=== PATIENT | female | born 1945 | race Caucasian/White ===

== ENCOUNTER → 2018-02-15 12:39 | Outpatient (CLI) | payer MEDICARE, SELFPAY ==
--- NOTE | 2018-02-15 12:44 | CA_ITS ---
PROCEDURE: 2-D M-mode and color Doppler study INDICATIONS FOR THE TEST: Chest pain COPD Heart MurmurX Tobacco Smoking Palpitations Fatigue Syncope Edema HypertensionXDiabetes Mellitus Rheumatic Fever SOB DOEXObesityXHyperlipidemiaX Family History HD Additional History PATIENT INFORMATION HEIGHT: 56 WEIGHT:170 GENDER: Female B/P:110/70 2-D/M-MODE INTERPRETATION: 2-D MEASUREMENTS OBSERVED VALUES IN CMS Right Ventricular Dimension (RVDd) 2.1 Interventricular Septum (Thickness)(IVsd) 1.1 Left Ventricular Internal Dimensions(LVIDd) 4.7 Left Ventricular Posterior Wall (Thickness)(LVPWd) .9 Aortic Root 2.9 Aortic Cusp Separation 1.9 Left Atrial Dimensions (LAD) 2.3 2D 1. Left atrium is qualitatively mildly enlarged, left ventricle is normal size, mild concentric left ventricular hypertrophy, visually estimated ejection fraction 55% with no obvious regional wall motion abnormality. 2. The right atrium and right ventricle are normal size and contractility. 3. The aortic, mitral and tricuspid valve are grossly normal. 4. The pulmonic valve is poorly visualized. 5. No significant pericardial effusion noted. DOPPLER INTERROGATION: Doppler interrogation of the aortic, mitral and tricuspid valvular presence of mild mitral and tricuspid regurgitation, tricuspid and jet velocity insufficient for calculation of the right ventricular systolic pressure, grade 1 diastolic dysfunction seen without tissue Doppler evidence of raised left atrial pressure. CONCLUSION: 1. Qualitatively mildly enlarged left atrium, normal left ventricular size, mild concentric left ventricular hypertrophy, visually estimated ejection fraction 55% with no obvious regional wall motion abnormality, grade 1 diastolic dysfunction seen without tissue Doppler evidence of raised left atrial pressure. 2. Mild mitral and tricuspid regurgitation 3. No significant pericardial effusion noted.
== END ==
PROVIDERS: Family Provider Family Medicine; PCP Family Medicine; Visit Provider Family Medicine
DX: R01.1 Cardiac murmur, unspecified (principal)
CPT/HCPCS: 93306

== ENCOUNTER → 2018-12-10 08:59 | Outpatient (CLI) | payer MEDICARE, SELFPAY ==
--- NOTE | 2018-12-10 09:14 | MM_ITS ---
MM Dig screening mamm BI w/CAD ORDERING PHYSICIAN : Jeanine Morales MD PATIENT AGE: 73 years GENDER: Female COMPARISON: October 2016, July 2015, June [id number] INDICATION: ITS routine screening mammogram. No hormones. No new complaints. Noncontributory family history. TECHNIQUE: Standard CC and MLO images were obtained. R2 CAD reviewed. . Additional nipple profile cc views bilaterally FINDINGS: Low-density breast. Generalized fatty replacement withMinimal residual fibroglandular elements in the retroareolar region . Linear secretory calcifications bilaterally are similar to previous studies and can be followed safely. Also vascular calcification noted bilaterally. Most notable diffuse calcification involving small artery vessel upper-outer quadrant both breast But no significant new findings in either breast. Follow-up follow-up in one year recommended. Small marker at the inferior left breast IMPRESSION: ........................................... Stable bilateral mammogram. No new areas of of concern benign secretory calcifications again noted bilaterally & with incremental progression over many years.- However these are Benign appearing feature can be followed . Bilateral follow-up one year recommended/adequate. BI-RADS Category: 2 Benign Finding(s) RECOMMENDED FOLLOW-UP: 1YR 1 YEAR FOLLOW-UP (A letter has been sent to the patient regarding results of the study.)
== END ==
PROVIDERS: PCP Family Medicine; Visit Provider Family Medicine
DX: Z12.31 Encounter for screening mammogram for malignant neoplasm of breast (principal)
CPT/HCPCS: 77067

== ENCOUNTER → 2019-09-01 11:06 | Outpatient (CLI) | payer MEDICARE, SELFPAY ==
--- NOTE | 2019-09-01 11:12 | XR_ITS ---
PROCEDURE: XR SHOULDER RT MIN 2V CLINICAL INDICATION: pain/weakness COMPARISON: No exams were available for comparison FINDINGS: Osteoarthritic changes are present at the acromioclavicular joint and to lesser degree at the glenohumeral joint with minimal cortical regularity of the greater tuberosity of the humeral head which may be seen with rotator cuff disease. No fracture or dislocation. No lytic or blastic change. IMPRESSION: Degenerative changes, no acute finding Dictated by: Fawad Del Valle MD 09/01/2019 11:52 Electronically signed by Fawad Del Valle MD in [place] 09/01/2019 11:52
== END ==
PROVIDERS: PCP Family Medicine; Visit Provider Specialist
DX: M79.601 Pain in right arm (principal); R29.898 Other symptoms and signs involving the musculoskeletal system
CPT/HCPCS: 73030

== ENCOUNTER → 2019-09-19 14:17 | Outpatient (CLI) | payer MEDICARE, SELFPAY ==
--- NOTE | 2019-09-19 14:17 | MR_ITS ---
PROCEDURE: MR SHOULDER RT WO CON CLINICAL INDICATION: weakness, pain COMPARISON: No exams were available for comparison TECHNIQUE: Routine multiplanar multisequence exam was performed. There is partial-thickness tear of the supraspinatus and infraspinatus tendons of the rotator cuff. There are tears of the anterior and posterior glenoid labrum. There are subchondral cysts likely degenerative in the humeral head largest approximately 8 millimeters. Small amount of fluid is seen in the subacromial/subdeltoid bursa. There is acromioclavicular joint arthropathy with fluid within the joint space. There is bony in fibrous overgrowth projecting inferiorly contacting the supraspinatus muscle. The bicipital tendon is in place. There is a short segment of high signal intensity within the bicipital tendon compatible with partial longitudinal tear as the bicipital tendon overlies proximal humeral head. There is some signal abnormality in the subscapularis tendon as it overlies the humeral head. Tendinosis versus partial substance tearing should be considered. FINDINGS: Partial-thickness tears of supraspinatus and infraspinatus tendons of rotator cuff. Partial longitudinal tear bicipital tendon. Tears of the anterior and posterior glenoid labrum. Acromioclavicular joint arthropathy. IMPRESSION: Dictated by: Tucker Saha 09/19/2019 16:27 Electronically signed by Tucker Saha in [place] 09/19/2019 16:27
== END ==
PROVIDERS: PCP Family Medicine; Visit Provider Specialist
DX: M79.601 Pain in right arm (principal); R29.898 Other symptoms and signs involving the musculoskeletal system
CPT/HCPCS: 73221

== ENCOUNTER → 2021-04-20 11:09 | Outpatient (CLI) | payer MEDICARE, SELFPAY | PROVIDERS: Visit Provider Internal Medicine Gastroenterology | DX: Z01.812 Encounter for preprocedural laboratory examination (principal); Z20.822 Contact with and (suspected) exposure to COVID-19; U07.1 COVID-19; Z12.11 Encounter for screening for malignant neoplasm of colon | CPT/HCPCS: C9803; U0003; U0005 ==

== ENCOUNTER → 2022-06-27 14:27 | Outpatient (CLI) | payer MEDICARE, SELFPAY ==
--- NOTE | 2022-06-27 14:44 | XR_ITS ---
FINAL REPORT CLINICAL HISTORY: LT LEG PAIN FINDINGS: Left knee Three views were obtained. There is no acute fracture or dislocation. There is moderate tri compartment degenerative change. The bones are osteopenic. No soft tissue abnormality is identified. IMPRESSION: Moderate degenerative changes. Reviewed, Interpreted and Dictated by Hope Wen MD Transcribed by Myesha Witt Authenticated and . [facility]
== END ==
PROVIDERS: PCP Family Medicine; Visit Provider Family Medicine
DX: M79.605 Pain in left leg (principal)
CPT/HCPCS: 73562

== ENCOUNTER → 2022-11-27 14:18 | Outpatient (CLI) | payer MEDICARE, SELFPAY ==
--- NOTE | 2022-11-27 14:20 | CA_ITS ---
FINAL REPORT TECHNIQUE: Ultrasound images of the deep venous system were obtained from the left groin to the calf veins. CLINICAL HISTORY: lle pain and edema FINDINGS: The deep venous system is normally compressible. Normal flow is identified. Note is made of a 4.2 cm popliteal cyst. IMPRESSION: No evidence of left lower extremity DVT. Reviewed, Interpreted and Dictated by Aniceto Espinosa MD Transcribed by Katty Kendrick Authenticated and [facility]
== END ==
PROVIDERS: PCP Family Medicine; Visit Provider Internal Medicine
DX: M79.662 Pain in left lower leg (principal)
CPT/HCPCS: 93971

== ENCOUNTER → 2023-01-24 12:54 | Outpatient (CLI) | payer MEDICARE, SELFPAY ==
--- NOTE | 2023-01-24 12:57 | MR_ITS ---
FINAL REPORT CLINICAL HISTORY: RIGHT SIDE SCIATICA COMPARISON: None FINDINGS: Multiplanar MR imaging of the lumbar spine was performed without contrast. On the sagittal T2-weighted images, disc degeneration is seen throughout. Mild retrolisthesis of L1 on L2 and L2 on L3. There is 6 mm of anterolisthesis of L5 on S1. There is no evidence of fracture. No bony mass is identified. The conus has an unremarkable appearance. L1-2: Annular disc bulge, facet arthropathy, and osteophytes. Moderate bilateral neuroforaminal narrowing. L2-3: Annular disc bulge, facet arthropathy, and osteophytes. Right paracentral disc protrusion. Right L3 nerve root impingement. Severe bilateral neuroforaminal narrowing. L3-4: Annular disc bulge, facet arthropathy, and osteophytes. Moderate right and severe left neuroforaminal narrowing. Left lateral recess stenosis. Moderate central canal stenosis with AP diameter of the thecal sac of 6 mm. L4-5: Annular disc bulge, facet arthropathy, and osteophytes. Severe right and moderate left neuroforaminal narrowing. Right lateral recess stenosis. Right L5 nerve root impingement. Mild central canal stenosis with AP diameter of the thecal sac of 7 mm. L5-S1: Annular disc bulge and facet arthropathy. Bilateral lateral recess stenosis. Severe right and moderate left neuroforaminal narrowing. IMPRESSION: Multilevel degenerative disc disease and spondylosis as described with disc protrusion at L2-3. Reviewed, Interpreted and Dictated by Maximino Gregory III, MD Transcribed by Charissa Ordoñez Authenticated and [facility]
== END ==
PROVIDERS: PCP Family Medicine; Visit Provider Family Medicine
DX: M54.50 Low back pain, unspecified (principal); M54.31 Sciatica, right side
CPT/HCPCS: 72148; 76376

== ENCOUNTER → 2023-04-13 10:32 | Outpatient (POV) | payer MEDICARE, SELFPAY ==
[2023-04-13 11:40] VITALS: BP 193/76; PULSE 75; RESP 18; O2SAT 98; BMI 29.4
--- NOTE | 2023-04-13 12:51 | EXP.PAIN.PRO ---
Procedure Date: 04/13/23 Anesthesiologist:: Andrez Mirza CRNA Complications:: None
--- NOTE | 2023-04-13 12:52 | EXP.PAIN.OV ---
HPI Data of Consult Consult date: 04/13/23 Requesting Physician: Andrez Mirza CRNA Primary Care Provider: Jeanine Morales MD Consult Narrative Reason for consult: Lumbar back pain. Right leg radiculopathy. History of present illness: Ms. Lehman is a 77 year old female who comes our clinic today for initial evaluation regarding chronic low back pain as well as right hip and leg radicular symptoms to the knee. The majority of her pain is in the posterior thigh. She describes the pain as constant, dull, aching. She rates the pain 10/10. Patient had a recent visit with Dr. Okeefe. He recommended injective therapy. Her lumbar MRI shows degenerative disc lumbar spine multilevel. Multilevel disc disease with spondylosis. Multilevel disc bulge. L2-3, L3-4, L4-5 and L5-S1. Right L5 nerve root impingement. Central canal stenosis at 4 5 and 5 S1. CC: Andrez Mirza CRNA [facility] Disclaimer: The information contained in this section may have been updated after the patient was seen, as this information can be updated by other users. Medical History (Updated 04/13/23 @ 12:54 by Andrez Mirza CRNA) Arthritis Cataract HLD (hyperlipidemia) HTN (hypertension) Surgical History (Updated 04/13/23 @ 11:43 by Mariam Carrera RN) H/O arthroscopic knee surgery H/O hemorrhoidectomy H/O shoulder surgery Hx of cholecystectomy Family History (Updated 04/13/23 @ 11:42 by Mariam Carrera RN) Other Cancer Heart attack Hypertension Social History (Updated 04/13/23 @ 11:44 by Mariam Carrera RN) Smoking Status: Never smoker alcohol intake: never substance use type: denies use current occupational status: retired Travel in the last 8 weeks: None household members: none housing: house caffeine: No Meds Home Medications and Allergies Home Medications Medication Instructions Recorded Confirmed Type aspirin 81 mg tablet,delayed 81 mg PO DAILY Supplement 09/01/19 04/13/23 History release ergocalciferol (vitamin D2) 1,250 1,250 mcg PO DAILY Supplement 09/01/19 04/13/23 History mcg (50,000 unit) capsule ezetimibe 10 mg tablet 10 mg PO DAILY Cholesterol 09/01/19 04/13/23 History gabapentin 100 mg capsule 100 mg PO DAILY Pain 09/01/19 04/13/23 History lansoprazole 30 mg capsule,delayed 30 mg PO DAILY GERD 09/01/19 04/13/23 History release pentoxifylline 400 mg 400 mg PO DAILY bp 09/01/19 04/13/23 History tablet,extended release ramipril 5 mg capsule 5 mg PO BID bp 09/01/19 04/13/23 History simvastatin 40 mg tablet 40 mg PO DAILY Cholesterol 09/01/19 04/13/23 History diclofenac potassium 50 mg tablet 50 mg PO BID Pain 04/19/21 04/13/23 History New Prescriptions to Start Prescriptions: Allergies Allergy/AdvReac Type Severity Reaction Status Date / Time acetaminophen [From PERCOCET] Allergy Unknown VOMIT-PROFU Verified 09/29/19 09:45 SE mirabegron [From MYRBETRIQ] Allergy Unknown NEUROLOGICAL Verified 09/29/19 09:45 EFFECTS oxycodone [From PERCOCET] Allergy Unknown VOMIT-PROFU Verified 09/29/19 09:45 SE Objective Vital signs: Pulse Resp BP Pulse Ox O2 Del Method 75 18 193/76 H 98 Room Air 04/13/23 11:40 04/13/23 11:40 04/13/23 11:40 04/13/23 11:40 04/13/23 11:40 Opioid Risk Tool Opioid Risk Tool-Female Family hx alcohol abuse: No Family hx illegal drugs: No Family hx rx drug abuse: No Personal hx alcohol abuse: No Personal hx illegal drugs: No Personal hx rx drug abuse: No Age: 45+ Hx of sexual abuse: No Mental health issues-ADD,OCD,Bipolar, etc: No Hx of depression: No Female Risk Score: 0 Assessment and Plan *Assessment and plan (1) Degenerative disc disease, lumbar: Status: Acute Category: Medical Code(s): M51.36 - Other intervertebral disc degeneration, lumbar region (2) Lumbar radiculopathy: Status: Acute Category: Medical Code(s): M54.16 - Radiculopathy, lumbar region (3) Bulging lumbar dis
== END ==
PROVIDERS: PCP Family Medicine; Visit Provider Nurse Anesthetist, Certified Registered
DX: M51.16 Intervertebral disc disorders with radiculopathy, lumbar region; M47.26 Other spondylosis with radiculopathy, lumbar region
CPT/HCPCS: 99202; G0463

== ENCOUNTER 2023-04-24 10:54 | Day surgery (SDC) | payer MEDICARE, SELFPAY ==
[2023-04-24 11:10] VITALS: BP 152/71; PULSE 81; RESP 18; TEMP 36.6; O2SAT 99; BMI 23.1
[2023-04-24 11:35] VITALS: BP 149/68; PULSE 75; RESP 16; O2SAT 99
--- NOTE | 2023-04-24 11:35 | EXP.PAIN.PRO ---
Procedure Date: 04/24/23 Time: 11:30 Anesthesiologist:: Andrez Mirza CRNA Complications:: None Pre-procedure Diagnosis:: Degenerative disc lumbar spine multilevels. Lumbar radiculopathy. Multilevel disc bulge lumbar spine. Right L5 nerve root impingement. Central canal stenosis 4 5 and 5 S1. Post-procedure Diagnosis:: Same. Indications for Procedure:: Patient is a very pleasant 77-year-old female that comes our clinic today for lumbar transforaminal epidural steroid injection on the right L4-5, L5-S1. Patient describes low back pain is constant, dull, aching. Patient also complains of bilateral hip and leg radicular symptoms. Right greater than left. Procedure Details:: Details of the procedure were explained to the patient. The patient was taken the procedure room placed in the prone position. The area of the lumbar spine was cleansed using chlorhexidine as a cleansing solution. At this time using fluoroscopy guidance markers were placed on the right lateral border of the L4 and L5 vertebral body. The skin and subcutaneous tissue was anesthetized using 1% lidocaine and 25-gauge needle. At this time using a 22-gauge 3-1/2 inch spinal needle the right upper one third of the L4-5 foramen was accessed. The same was done at the right L5-S1 foramen. Needle positions were confirmed and a lateral view using fluoroscopy and contrast dye. At this time 1 cc of 1% lidocaine +20 mg of Depo-Medrol was injected at each level after negative aspiration. [place] were removed. Band-Aid applied. Patient tolerated the procedure without difficulty. There are no complications. Plan and Disposition:: Patient was discharged without incident.
[2023-04-24 11:38] VITALS: BP 171/84; PULSE 85; RESP 18; O2SAT 95
[2023-04-24 11:39] VITALS: BP 171/84; PULSE 85; RESP 18; O2SAT 95
== END 2023-04-24 11:35 | disposition home or self-care (01) ==
PROVIDERS: PCP Family Medicine; Visit Provider Nurse Anesthetist, Certified Registered
DX: M51.16 Intervertebral disc disorders with radiculopathy, lumbar region (principal); M48.061 Spinal stenosis, lumbar region without neurogenic claudication
CPT/HCPCS: 64483; 64484; J1030

== ENCOUNTER → 2023-05-11 14:04 | Outpatient (POV) | payer MEDICARE, SELFPAY ==
[2023-05-11 14:13] VITALS: BP 174/69; PULSE 76; RESP 20; BMI 29.4
--- NOTE | 2023-05-11 14:31 | EXP.PAIN.SOA ---
[facility] Pain Management SOAP Note Subjective:: Patient is a very pleasant 77-year-old female that returns our clinic today after receiving a lumbar transforaminal epidural on the right at L4-5 and L5-S1. Patient reports 60 to 70% improvement in terms of her overall right hip and leg radicular symptoms. Patient reports today continuing with a low lumbar back pain bilaterally as well as some left leg radicular symptoms. I discussed in detail with the patient regarding intralaminar lumbar epidural steroid injection at the L4-5 level that would help improve symptoms bilaterally. Patient has seen Dr. Okeefe and patient not interested in having surgical intervention at this time. Patient's lumbar MRI shows multilevel degenerative disc, multilevel spondylosis, multilevel disc bulge, central canal stenosis L4-5 and L5-S1. Patient's Cal #[id number] has been reviewed and appropriate. Patient continues taking some Tylenol arthritis for her pain in the low lumbar area. Patient has tried and failed physical therapy due to increased pain. Patient reports today she has not been able to do home exercise and/or light house duty secondary to the pain. Objective:: Patient is awake alert [place] x3. In no acute distress. Flexion-extension lumbar spine somewhat guarded secondary to pain. Deep tendon reflexes upper and lower extremities normal. Motor strength upper and lower extremities normal. There is no gross sensory deficit. Gait is normal. Assessment:: Degenerative disc lumbar spine multilevels. Lumbar radiculopathy. Lumbar spinal stenosis. Lumbar multilevel disc bulge. Lumbar spondylosis. Plan:: I discussed in detail with the patient regarding intralaminar L4-5 lumbar epidural steroid injection. I answered her questions. She wishes to proceed. We will get this scheduled for her today. [facility] Disclaimer: The information contained in this section may have been updated after the patient was seen, as this information can be updated by other users. Medical History Arthritis Cataract HLD (hyperlipidemia) HTN (hypertension) Surgical History H/O arthroscopic knee surgery H/O hemorrhoidectomy H/O shoulder surgery Hx of cholecystectomy Family History Other Cancer Heart attack Hypertension Social History Smoking Status: Never smoker alcohol intake: never substance use type: denies use current occupational status: other Travel in the last 8 weeks: None household members: none housing: house caffeine: No
== END ==
PROVIDERS: PCP Family Medicine; Visit Provider Nurse Anesthetist, Certified Registered
DX: M51.16 Intervertebral disc disorders with radiculopathy, lumbar region (principal); M48.061 Spinal stenosis, lumbar region without neurogenic claudication; M47.26 Other spondylosis with radiculopathy, lumbar region
CPT/HCPCS: 99212; G0463

== ENCOUNTER 2023-05-22 09:54 | Day surgery (SDC) | payer MEDICARE, SELFPAY ==
[2023-05-22 09:40] VITALS: BP 161/75; PULSE 88; RESP 18; TEMP 36.4; O2SAT 99; BMI 29.4
[2023-05-22 10:42] VITALS: BP 171/76; PULSE 84; RESP 18; O2SAT 96
[2023-05-22 10:45] VITALS: BP 171/76; PULSE 84; RESP 18; O2SAT 96
--- NOTE | 2023-05-22 11:48 | EXP.PAIN.PRO ---
Procedure Date: 05/22/23 Time: 11:00 Anesthesiologist:: Andrez Mirza CRNA Complications:: None Pre-procedure Diagnosis:: Degenerative disc lumbar spine multilevels. Lumbar radiculopathy. Lumbar spinal stenosis. Post-procedure Diagnosis:: Same. Indications for Procedure:: Patient is a very pleasant 77-year-old female comes our clinic today for lumbar epidural steroid inject the L4-5 level. Patient complains of low back pain she describes as constant, dull, aching. Patient also complains of bilateral hip and leg radicular symptoms right greater than left. Patient rates her pain 6/10. Procedure Details:: Procedure: Lumbar epidural steroid injection under fluoroscopy Informed consent was obtained and the risks and benefits of the procedure were explained to the patient. The patient was taken to the procedure room and noninvasive monitors placed, including noninvasive blood pressure cuff and pulse oximeter. The back was viewed using C-arm Fluoroscopy and prepped using Chloraprep as a cleansing solution and the L4-L5 interspace was palpated. Skin and subcutaneous tissues were anesthetized using lidocaine 1.5% and a 25-gauge needle. After this, an 18-gauge Touhy epidural needle was placed into the L4-L5 interspace and advanced using fluoroscopic guidance and loss of resistance to air until the epidural space was encountered. After confirmation of needle placement in the epidural space, with dye, a solution containing normal saline, 3 mL and Depo-Medrol 80 mg were incrementally injected into the lumbar epidural space. The patient tolerated the procedure well with no complications. The patient was observed in the Pain Clinic and then discharged home neurologically intact. Plan and Disposition:: Patient was discharged without incident.
== END 2023-05-22 10:23 | disposition home or self-care (01) ==
LOC: SC.PAINP 09:55
PROVIDERS: PCP Family Medicine; Visit Provider Nurse Anesthetist, Certified Registered
DX: M51.16 Intervertebral disc disorders with radiculopathy, lumbar region (principal); M48.061 Spinal stenosis, lumbar region without neurogenic claudication
CPT/HCPCS: 62323; J1040

== ENCOUNTER → 2023-06-06 09:38 | Outpatient (POV) | payer MEDICARE, SELFPAY ==
--- NOTE | 2023-06-06 09:47 | EXP.PAIN.SOA ---
[facility] Pain Management SOAP Note Subjective:: Patient is a very pleasant 77-year-old female who presents today for follow-up of lumbar epidural steroid injection L4-L5 on 05/22/2023. We are currently treating the patient for degenerative disc disease of lumbar spine with lumbar radiculopathy symptoms, right leg pain. Today she rates her pain a 5 out of 10. Patient denies any new trauma or injury. She does state that she has had at least 50% improvement following her back injection however she does state that she has been experiencing more pain in her left knee. Patient does state this is a aching sensation that is worse with increased activity. She does believe it is all related to arthritis. Patient has had intra-articular injections in the past from her primary care provider that did provide additional relief. Patient does state that she has had a total knee replacement on the right side but denies any previous surgery along the left. She does state the pain interferes with her ability perform activities of daily living such as cooking or cleaning or even simple ambulation. Patient does use Tylenol arthritis for some improvement. Patient has tried and failed physical therapy. She does continue to do at home exercising and stretching such as light housework however this is dependent on how bad her pain is on a day-to-day basis. Her Cal has been reviewed and is appropriate. Review of Systems: General: No recent weight changes, no fever, no sleep disturbances Respiratory: No cough, no shortness of air, no recurring pulmonary infections Cardiovascular/peripheral vascular: No chest pain, no palpitations, no edema, no shortness of breath Gastrointestinal: No new onset incontinence, normal bowel movements reported Genitourinary: No new onset incontinence Musculoskeletal: Left knee pain Psychiatric: [Normal mood/affect] Neurological: [Denies weakness in extremities], [denies balance issues] Objective:: Physical Exam: General: Alert and oriented x3, no acute distress, pleasant and cooperative Lungs: Respirations even and unlabored, symmetrical chest expansion Eyes: PERRL Musculoskeletal: Flexion and extension of left knee somewhat guarded secondary to pain, [antalgic gait noted] Neurological: Speech clear, no gross sensory deficit Assessment:: Degenerative disc disease of lumbar spine with lumbar radiculopathy symptoms, right leg pain, left knee pain Plan:: Patient is experiencing worsening pain in her left knee with limited range of motion. I have discussed with the patient that she may benefit from a left intra-articular knee injection. Risk and benefits were discussed with the patient however she would like to confirm with her primary care provider when the last injection was given. I have counseled her that she can call and schedule this injection over the phone between now and her next visit. I will order the patient a compounded cream. Patient will return to clinic in 1 month for reevaluation of symptoms and plan of care. Patient has been instructed to contact the clinic with any concerns before the next appointment. Dr. Noe has reviewed this note and agrees with this plan of care. This note was dictated using voice recognition software and make contain errors or omissions. [facility] Disclaimer: The information contained in this section may have been updated after the patient was seen, as this information can be updated by other users. Medical History Arthritis Cataract HLD (hyperlipidemia) HTN (hypertension) Surgical History H/O arthroscopic knee surgery H/O hemorrhoidectomy H/O shoulder surgery Hx of cholecystectomy Family History Other Cancer Heart attack Hypertension Social History Altagracia
[2023-06-06 10:05] VITALS: BP 144/69; PULSE 77; RESP 18; O2SAT 97; BMI 30.2
== END ==
PROVIDERS: PCP Family Medicine; Visit Provider Nurse Practitioner Family
DX: M51.16 Intervertebral disc disorders with radiculopathy, lumbar region (principal); M79.604 Pain in right leg; M25.562 Pain in left knee
CPT/HCPCS: 99212; G0463

== ENCOUNTER → 2023-07-05 10:42 | Outpatient (POV) | payer MEDICARE, SELFPAY ==
[2023-07-05 10:50] VITALS: BP 136/86; PULSE 73; RESP 18; O2SAT 100; BMI 29.2
--- NOTE | 2023-07-05 11:19 | EXP.PAIN.SOA ---
[facility] Pain Management SOAP Note Subjective:: Patient is a pleasant 77-year-old female who presents today for follow-up. We are currently treating the patient for degenerative disc disease of lumbar spine with lumbar radiculopathy symptoms, bilateral knee pain/osteoarthritis. Today she rates her pain a 5 out of 10. Patient denies any new trauma or injury. Patient does state that she is experiencing worsening pain with her knees. She states that she has had a right knee replacement in the past however has never had any surgery on her left. Patient does state that the right knee will throb throughout the night interfering with her sleeping. She states it is hard to get in a good position. Patient does state the pain interferes with her ability perform activities of daily living such as cooking and cleaning. At our last visit we did review over the intra-articular injection for her left knee and she states today she would like to proceed forward with this plan of care. We did also order her a compounded cream however she states that she had a lot going on over the last month and she is unsure if they did contact her. She would like to reorder this medication. Her Cal has been reviewed and is appropriate. Review of Systems: General: No recent weight changes, no fever, no sleep disturbances Respiratory: No cough, no shortness of air, no recurring pulmonary infections Cardiovascular/peripheral vascular: No chest pain, no palpitations, no edema, no shortness of breath Gastrointestinal: No new onset incontinence, normal bowel movements reported Genitourinary: No new onset incontinence Musculoskeletal: Bilateral knee pain Psychiatric: [Normal mood/affect] Neurological: [Denies weakness in extremities], [denies balance issues] Objective:: Physical Exam: General: Alert and oriented x3, no acute distress, pleasant and cooperative Lungs: Respirations even and unlabored, symmetrical chest expansion Eyes: PERRL Musculoskeletal: Flexion and extension of bilateral knees somewhat guarded secondary to pain, [antalgic gait noted] Neurological: Speech clear, no gross sensory deficit Assessment:: Degenerative disc disease of lumbar spine with lumbar radiculopathy symptoms, right leg pain, bilateral knee pain/osteoarthritis, chronic right knee pain status post right knee arthroplasty Plan:: Patient is experiencing worsening pain in her bilateral knees with limited range of motion. I have discussed with the patient the risk and benefits of the intra-articular injection as well as trigger point injections for her right knee. Risk and benefits were discussed with the patient and she would like to proceed forward with this plan of care. We will schedule the patient for a left knee intra-articular injection and right knee trigger point injections. I will also reach out to the [place] pharmacy regarding the compounding cream and reorder this. Patient has been instructed to contact the clinic with any concerns before the next appointment. Dr. Noe has reviewed this note and agrees with this plan of care. This note was dictated using voice recognition software and make contain errors or omissions. [facility] Disclaimer: The information contained in this section may have been updated after the patient was seen, as this information can be updated by other users. Medical History Arthritis Cataract HLD (hyperlipidemia) HTN (hypertension) Surgical History H/O arthroscopic knee surgery H/O hemorrhoidectomy H/O shoulder surgery Hx of cholecystectomy Family History Other Cancer Heart attack Hypertension Social History Smoking Status: Never smoker alcohol intake: never substance use type: denies use current occupational statu
== END ==
PROVIDERS: PCP Family Medicine; Visit Provider Nurse Practitioner Family
DX: M51.16 Intervertebral disc disorders with radiculopathy, lumbar region (principal); M79.604 Pain in right leg; M17.0 Bilateral primary osteoarthritis of knee; M25.561 Pain in right knee; M25.562 Pain in left knee; G89.29 Other chronic pain
CPT/HCPCS: 99212; G0463

== ENCOUNTER 2023-07-17 09:16 | Day surgery (SDC) | payer MEDICARE, SELFPAY ==
[2023-07-17 09:38] VITALS: BP 146/67; PULSE 87; TEMP 36.3; O2SAT 99; BMI 29.2
[2023-07-17 09:49] VITALS: BP 140/83; PULSE 85; RESP 18; O2SAT 97
[2023-07-17 09:50] VITALS: BP 140/83; PULSE 90; RESP 18; O2SAT 97
--- NOTE | 2023-07-17 09:59 | P.PCN_ITS ---
Procedure Date: 07/17/23 Time: 09:45 Anesthesiologist:: Andrez Mirza CRNA Complications:: None Pre-procedure Diagnosis:: DJD left knee. Chronic left knee pain. Chronic right knee pain status post right knee replacement. Post-procedure Diagnosis:: Same. Indications for Procedure:: Patient is a pleasant 77-year-old female that comes our clinic today for left knee intra-articular injection. Also, trigger point injections of the right distal quadriceps tendon as well as the proximal right patellar tendon. Patient has bilateral knee pain she describes as constant, dull, aching. Patient has difficulty with ambulation. She rates her pain 8/10. Procedure Details:: Details of the procedure explained to the patient. The patient taken procedure room placed in the sitting position. The area over the bilateral knees was cleansed using chlorhexidine's cleansing solution. Using a 25-gauge inch and a half needle the left knee joint was accessed with ease. 6 cc of a solution containing 0.25% Marcaine +1% lidocaine and 40 mg of Depo-Medrol was injected. Patient tolerated procedure without difficulty. There are no complications. The right distal quadriceps tendon was injected into separate areas medially and laterally with 4 cc of 1% lidocaine and 10 mg of Depo-Medrol at each area. The right proximal patellar tendon anteriorly was injected with 4 cc of 1% lidocaine and 10 mg of Depo-Medrol. All 3 of these injections were given through a 25- gauge inch and half needle. Patient tolerated procedure without difficulty. There are no complications. Plan and Disposition:: Patient was discharged without incident.
[2023-07-17 10:00] VITALS: BP 153/72; PULSE 81; O2SAT 99
== END 2023-07-17 09:55 | disposition home or self-care (01) ==
LOC: SC.PAINP 09:17
PROVIDERS: PCP Family Medicine; Visit Provider Nurse Anesthetist, Certified Registered
DX: M17.12 Unilateral primary osteoarthritis, left knee (principal); M25.562 Pain in left knee; G89.29 Other chronic pain; Z96.651 Presence of right artificial knee joint; M25.561 Pain in right knee
CPT/HCPCS: 20551; 20610; J1040

== ENCOUNTER → 2023-08-03 10:36 | Outpatient (POV) | payer MEDICARE, SELFPAY ==
[2023-08-03 11:04] VITALS: BP 146/72; PULSE 77; RESP 18; O2SAT 96; BMI 28.1
--- NOTE | 2023-08-03 12:13 | A.OFFVIS_ITS ---
[facility] Pain Management SOAP Note Subjective:: Patient is a pleasant 77-year-old female who presents today for follow-up of left knee intra-articular injection and trigger point injections of the right distal quadriceps tendon and proximal right patellar tendon on 07/17/2023. We are currently treating the patient for degenerative disc disease of lumbar spine with lumbar radiculopathy symptoms, bilateral knee pain/osteoarthritis, lumbar spinal stenosis. Today she rates her pain a 7 out of 10. Patient states that her left knee is doing extremely well and not bothering her. She states that currently it is in and around her right knee that she is experiencing the pain. Patient states that it goes down her entire right leg and describes it as a constant hurting sensation that is worse with when she is sitting or at night when she is lying down. She states the pain interferes with her ability to sleep as well as perform activities of daily living such as cooking and cleaning. Patient does state that previously her neurosurgeon had discussed possibly doing surgery but wanted to try conservative treatment first. Patient states she has concerns that she would like her symptoms fixed and not masked through the injections. Patient has tried [id number] medications along with heat and ice and topicals with minimal relief. Patient was ordered compounding cream in the past. Her Cal has been reviewed and is appropriate. Review of Systems: General: No recent weight changes, no fever, no sleep disturbances Respiratory: No cough, no shortness of air, no recurring pulmonary infections Cardiovascular/peripheral vascular: No chest pain, no palpitations, no edema, no shortness of breath Gastrointestinal: No new onset incontinence, normal bowel movements reported Genitourinary: No new onset incontinence Musculoskeletal: Low back pain, right leg pain Psychiatric: [Normal mood/affect] Neurological: [Denies weakness in extremities], [denies balance issues] Objective:: Physical Exam: General: Alert and oriented x3, no acute distress, pleasant and cooperative Lungs: Respirations even and unlabored, symmetrical chest expansion Eyes: PERRL Musculoskeletal: Flexion and extension of lumbar [spine] somewhat guarded secondary to pain, [antalgic gait noted] positive right leg raise with decreased sensation to light touch and decreased reflexes Neurological: Speech clear, no gross sensory deficit Assessment:: Degenerative disc disease of lumbar spine with lumbar radiculopathy symptoms, bilateral knee pain/osteoarthritis, lumbar spinal stenosis Plan:: Patient continues to experience significant pain in her low back that does radiate down her entire right leg. Patient had limited range of motion of her lumbar spine along with a positive right leg raise and decreased sensation to light touch and decreased reflexes. I have discussed with the patient that she may benefit from a right transforaminal epidural steroid injection. Risk and benefits were discussed with the patient however at this time she is unsure if she would want to proceed. I have discussed with the patient that she can call and schedule this injection over the phone between now and her next visit if she decides to. Patient will return to clinic in 2 weeks for reevaluation of symptoms and plan of care. All epidurals are done under fluoroscopic guidance to confirm placement. Patient has been counseled to contact our office with any questions or concerns before their next appointment date. This note has been dictated using voice recognition software and may contain errors or omissions. Dr. Noe has read this note and agrees with this plan of care. [facility] Disclaimer: The information contained in this section may have been updated after the patient was seen, as this information can be updated by other users. Medical History Arthritis Cataract HLD (hyperlipidemia) HTN (hypertension) Surgical History H/O arthroscopic knee surgery H/O hemorrhoidectomy H/O shoulder surgery Hx of cholecystectomy Family History Other Cancer Heart attack Hypertension Social History (Updated 07/17/23 @ 09:38 by Steph Cook RN) Smoking Status: Never smoker alcohol intake: never substance use type: denies use current occupational status: retired Travel in the last 8 weeks: None household members: none housing: house caffeine: No
== END ==
LOC: SC.PAIN 10:37
PROVIDERS: PCP Family Medicine; Visit Provider Nurse Practitioner Family
DX: M51.16 Intervertebral disc disorders with radiculopathy, lumbar region (principal); M17.0 Bilateral primary osteoarthritis of knee; M25.561 Pain in right knee; M25.562 Pain in left knee; M48.061 Spinal stenosis, lumbar region without neurogenic claudication
CPT/HCPCS: 99212; G0463

== ENCOUNTER 2023-09-12 12:44 | Outpatient (CLI) | payer MEDICARE, SELFPAY ==
--- NOTE | 2023-09-12 12:49 | XR_ITS ---
FINAL REPORT CLINICAL HISTORY: THORACIC BACK PAIN COMPARISON: None FINDINGS: AP and lateral views of the thoracic spine were obtained. There is no prior exam for comparison. There is no acute fracture or malalignment. Moderate degenerative changes noted in the thoracic spine with multilevel osteophytes. Vertebral body height is preserved. Paraspinal soft tissues are within normal limits. IMPRESSION: No acute osseous abnormality of the thoracic spine. Reviewed, Interpreted and Dictated by Maximino Gregory III, MD Transcribed by Marilin De Santiago Authenticated and [facility]
== END 2023-09-12 23:59 ==
LOC: RAD 12:45
PROVIDERS: PCP Family Medicine; Visit Provider Family Medicine
DX: M54.6 Pain in thoracic spine (principal)
CPT/HCPCS: 72072

== ENCOUNTER 2024-09-01 09:11 | Day surgery (SDC) | payer MEDICARE, SELFPAY ==
[2024-07-25 13:12] VITALS: BMI 29.2
[2024-08-19 11:25] VITALS: BMI 26.4
[2024-09-01 09:44] VITALS: BP 164/73; PULSE 88; RESP 17; TEMP 36.3; O2SAT 98
[2024-09-01] MEDS: LACTATED RINGERS 1000ML 1,000 ML 50 ML IV (10:00)
--- NOTE | 2024-09-01 10:06 | P.PNANES_ITS ---
[facility] Disclaimer: The information contained in this section may have been updated after the patient was seen, as this information can be updated by other users. Medical History Cataract HLD (hyperlipidemia) HTN (hypertension) Arthritis Surgical History H/O shoulder surgery Hx of cholecystectomy H/O hemorrhoidectomy H/O arthroscopic knee surgery Family History Other Cancer Heart attack Hypertension Social History Smoking Status: Never smoker alcohol intake: never substance use type: denies use current occupational status: retired Travel in the last 8 weeks: None household members: none housing: house caffeine: Yes Have you lived/traveled outside [place] in past 30 days?: No Contact w/someone who lives/traveled outside US past 30 days?: No Exposure to someone with infectious disease in past 14 days?: No Do you have a fever (greater than 100.4 F or 38 C)?: No Have you tested positive for COVID-19: No Exposed to someone with COVID-19 in past 14 days?: No Do you have a sore throat?: No Do you have a cough?: No Do you have any weakness?: No Are you experiencing any nausea/vomitting?: No Do you have any diarrhea?: No Are you experiencing any unusual bleeding?: No Do you have any muscle aches/pain?: No Do you have any abdominal pain?: No Are you experiencing loss of taste or smell?: No [facility] Anesthesia Checklist Patient Identification Patient Identification: Arm Band Structural Data Admitted From: Home Planned Operative Procedure/s: Colonoscopy Consent for Planned Operative Procedure(s) Verified: Yes Verified Documents: Surgical Consent and History and Physical NPO Status Verified Time NPO: 00:00 Additional verifications Anesthesia Reactions: No Hx Blood Transfusions: No Blood Transfusion Reaction: No Airway Assessment Mallampati Score:: Class II C-Spine Mobility Assessed: Yes TMJ Mobility Assessed: Yes Dentition: Edentulous Neurological Assessment Level of Consciousness: Awake, Alert and Appropriate Anesthesia Plan Anesthesia Risk discussed: Yes Anesthesia Plan: Verified ASA Class: II Anesthesia Type: MAC
--- NOTE | 2024-09-01 10:07 | EXP.HP ---
History of Present Illness *Admission Date: 09/01/24 *History of present illness: Mrs. Lehman is an 78-year-old female who is here for change in bowel habits, diarrhea and incontinence. The examination is deemed medically necessary for diagnostic colonoscopy. The patient has been seen, interviewed and examined prior to the procedure by both myself and the anesthesia provider. [facility] Disclaimer: The information contained in this section may have been updated after the patient was seen, as this information can be updated by other users. Medical History Cataract HLD (hyperlipidemia) HTN (hypertension) Arthritis Surgical History H/O shoulder surgery Hx of cholecystectomy H/O hemorrhoidectomy H/O arthroscopic knee surgery Family History Other Cancer Heart attack Hypertension Social History Smoking Status: Never smoker alcohol intake: never substance use type: denies use current occupational status: retired Travel in the last 8 weeks: None household members: none housing: house caffeine: Yes Have you lived/traveled outside US in past 30 days?: No Contact w/someone who lives/traveled outside US past 30 days?: No Exposure to someone with infectious disease in past 14 days?: No Do you have a fever (greater than 100.4 F or 38 C)?: No Have you tested positive for COVID-19: No Exposed to someone with COVID-19 in past 14 days?: No Do you have a sore throat?: No Do you have a cough?: No Do you have any weakness?: No Are you experiencing any nausea/vomitting?: No Do you have any diarrhea?: No Are you experiencing any unusual bleeding?: No Do you have any muscle aches/pain?: No Do you have any abdominal pain?: No Are you experiencing loss of taste or smell?: No Other Medical History Have you received the Flu Vaccine for this season: Yes Have you received the Pneumonia Vaccine: Yes Review of Systems Review of Systems Review of systems (narrative): Negative *Cardiovascular Comments: Negative *Gastrointestinal Comments: Negative *Genitourinary Comments: Negative *Musculoskeletal Comments: Negative *Neurologic Comments: Negative Meds Home Medications and Allergies Home Medications ?Medication ?Instructions ?Recorded ?Confirmed ?Type aspirin 81 mg tablet,delayed 81 mg PO DAILY Supplement 09/01/19 09/01/24 History release ergocalciferol (vitamin D2) 1,250 1,250 mcg PO DAILY Supplement 09/01/19 09/01/24 History mcg (50,000 unit) capsule ezetimibe 10 mg tablet 10 mg PO DAILY Cholesterol 09/01/19 09/01/24 History lansoprazole 30 mg capsule,delayed 30 mg PO DAILY GERD 09/01/19 09/01/24 History release pentoxifylline 400 mg 400 mg PO DAILY bp 09/01/19 09/01/24 History tablet,extended release ramipril 5 mg capsule 5 mg PO BID bp 09/01/19 09/01/24 History simvastatin 40 mg tablet 40 mg PO DAILY Cholesterol 09/01/19 09/01/24 History New Prescriptions to Start Prescriptions: Allergies Allergy/AdvReac Type Severity Reaction Status Date / Time acetaminophen (From PERCOCET) Allergy Unknown VOMIT-PROFU Verified 09/01/24 09:41 SE mirabegron (From MYRBETRIQ) Allergy Unknown NEUROLOGICAL Verified 09/01/24 09:41 EFFECTS oxycodone (From PERCOCET) Allergy Unknown VOMIT-PROFU Verified 09/01/24 09:41 SE Exam Data for Last 24 hours Vital signs and Labs for Last 24 Hours: Temp Pulse Resp BP Pulse Ox O2 Del Method 97.4 F L 88 17 164/73 H 98 Nasal Cannula 09/01/24 09:44 09/01/24 09:44 09/01/24 09:44 09/01/24 09:44 09/01/24 09:44 09/01/24 09:44 *Routine HEENT Exam Head: Present normocephalic Eye: Present EOMI and PERRL ENT: Present mucous membranes moist *Routine Neck Exam Neck: Present supple *Routine Respiratory Exam Respiratory: Present CTA bilaterally *Routine Cardiovascular Exam Cardiovascular: Present RRR *Routine Abdominal Exam Abdominal: Present soft and normoactive bowel sounds; Absent tenderness *Routine Rectal Exam Rectal:: deferred *Routine Genitalia Exam Genitalia:: deferred *Routine Extremities Exam Extremities: Absent cyanosis, clubbing or edema *Routine Skin Exam Skin: Present warm; Absent rash *Routine Neurological Exam Neurological: Present alert and oriented X3 Assessment and Plan *Assessment and plan (1) Diarrhea: Status: Acute Category: Medical Code(s): R19.7 - Diarrhea, unspecified (2) Incontinence of feces: Status: Acute Category: Medical Code(s): R15.9 - Full incontinence of feces (3) Fecal urgency: Status: Acute Category: Medical Code(s): R15.2 - Fecal urgency (4) Change in bowel habits: Status: Acute Category: Medical Code(s): R19.4 - Change in bowel habit Plan A/P: 1. Diarrhea, change in bowel habits, fecal urgency and incontinence is the preprocedural diagnosis. The patient will be anesthetized/sedated using MAC sedation. The patient has been seen and examined. Cardiac and lung assessment prior to the examination is stable. Proceed with planned diagnostic EGD
[2024-09-01 10:16] VITALS: O2SAT 100
--- NOTE | 2024-09-01 10:18 | HMH.PROCNOTE ---
[facility] Procedure Note Date: 09/01/24 Time: 10:36 Procedure Note:: Colonoscopy Procedure Report: Colonoscopy with cold snare polypectomy and cold biopsies Endoscopist: Jack Lopez II, MD Referring physician: Nan Morales M.D. Date of Procedure: September 01, 2024 Equipment: Olympus 190 variable stiffness pediatric colonoscope Sedation: MAC sedation Indication: Mrs. Lehman is an 78-year-old female who is here for diagnostic colonoscopy secondary to chronic diarrhea with frequent fecal incontinence. She has significant bowel control difficulties for the last 3 to 4 years with bowel urgency and frequency and incontinence that can occur several times weekly. The patient also has urinary incontinence. She did have cholecystectomy over 20 years ago. The patient has lost about 20 to 30 pounds in the last year. She reports no rectal bleeding or mucus with her bowel movements. She reports no significant abdominal pain. She does state that her sister and mother both had colostomies for diverticulitis. Her daughter has rectal cancer. She did have a colonoscopy with [facility] in [place] for 5 years ago. Procedure: Prior to the procedure, a history and physical exam was performed, and patient's medications and allergies were reviewed. The risks, benefits and alternatives of the sedation and procedure were discussed with the patient. All questions were answered and informed consent was obtained. The patient was brought to the procedure room. Patient identification and proposed procedure were verified by the physician and the nurse. The patient was placed in a left lateral decubitus position and the scope was passed under direct vision. Throughout the procedure, the patient's blood pressure, pulse, and oxygen saturations were monitored continuously. The colonoscopy was accomplished without difficulty. The patient tolerated the procedure well. Findings: On digital rectal examination there was normal rectal tone. There were no external hemorrhoids. The colonoscope was introduced through the anal canal to the rectum and advanced to the cecum. The ileocecal valve and appendiceal orifice were identified. The scope was advanced a short distance into the ileum which appeared grossly normal. The scope was then withdrawn into the colon. There were 2 benign polyps (ascending x 1 (5 mm) and descending x 1 (4 mm)). These were both removed via cold snare polypectomy. Random biopsies were taken from both the right and left colon to rule out microscopic colitis. The remaining cecum, ascending and transverse colon and mucosa were grossly normal. There were extensively scattered diverticuli throughout the descending and sigmoid colon (LEFT colon). The rectum itself was normal. Upon retroflexion within the rectum there were grade 1-2 internal hemorrhoids. The preparation was excellent throughout with Rye Preparation Score of 9. The cecal time was 14 minutes. Impression: 1. Diminutive colonic polyps x 2 2. Extensive left-sided diverticulosis 3. Grade 1-2 internal hemorrhoids Plan: I will follow-up the polyp histology. I am not convinced that she will require any further preventive/surveillance colonoscopy. I would recommend bulking FiberCon 2 tablets p.o. every morning and colestipol (for bile acid diarrhea) at bedtime. She does have more significant bowel and bladder control difficulties. Both bowel function and bladder function are a delicate balance between the nerves and muscles. The nerves that arise from the sacral spine are very closely tied to bowel and bladder evacuation. This sacral nervous system allows you to recognize when your rectum and bladder are full and allows you to correctly contract muscles and hold on to stool and urine appropriately before or until you get to the bathroom. It also allows your bowel and bladder to evacuate fully. When this balance is upset there is incorrect communication between the brain and the nervous system. This can result in the inability to control the passage of liquid and/or solid stool, involuntary leakage and sometimes loss of bowel control. Initially conservative therapy such as dietary measures, fiber bulk, antidiarrheals and anti-spasmodic are utilized. However, when this is not providing the relief and affecting your [id number], we must consider InterStim. Electrical stimulation of the sacral nerve roots can restore continence in most persons. This is certainly less invasive and less costly than most treatments for significant stool leakage/fecal incontinence. An electrode is placed into the sacral portion of the back which provides low-grade stimulation via an implanted stimulator. Studies have shown improvements of anal sphincter tone, squeeze pressures and rectal sensation. It also significantly improves bladder evacuation difficulties. I do recommend InterStim in persons who have concomitant urinary difficulties and chronic sacral back pain. I initially recommend the InterStim trial which is also called Basic Nerve Evaluation. This test involves placing a thin wire next to the nerves that control bowel function. When this evaluation is successful, patients usually experience dramatic improvement. If this trial is not successful, we do not place the InterStim.
[2024-09-01 10:39] VITALS: BP 109/56; PULSE 71; RESP 16; TEMP 36.2; O2SAT 97
[2024-09-01 10:49] VITALS: BP 117/56; PULSE 67; RESP 16; O2SAT 99
[2024-09-01 10:59] VITALS: BP 122/69; PULSE 68; RESP 16; O2SAT 98
[2024-09-01 11:09] VITALS: BP 124/67; PULSE 69; RESP 16; O2SAT 98
== END 2024-09-01 11:45 | disposition home or self-care (01) ==
PROVIDERS: PCP Family Medicine; Visit Provider Internal Medicine Gastroenterology
PROC: (CPT 45380; principal; 2024-09-01 11:00)
DX: R19.7 Diarrhea, unspecified (principal); R15.9 Full incontinence of feces; R15.2 Fecal urgency; R19.4 Change in bowel habit; Z80.0 Family history of malignant neoplasm of digestive organs; K63.5 Polyp of colon; K57.30 Diverticulosis of large intestine without perforation or abscess without bleeding; K64.8 Other hemorrhoids
CPT/HCPCS: 45380; 45385; J7120

== ENCOUNTER 2024-11-25 10:14 | Outpatient (CLI) | payer MEDICARE, SELFPAY ==
--- NOTE | 2024-11-25 10:17 | MM_ITS ---
PROCEDURE INFORMATION: Exam: MG Bilateral Screening 3D Mammography Exam date and time: 11/25/2024 10:32 AM Age: 79 years old Clinical indication: Screening. No family history of breast cancer. TECHNIQUE: Imaging protocol: Bilateral Screening tomosynthesis and 2D mammography including computer-aided detection (CAD) when performed. COMPARISON: 1. MG DIG MAMM-SCREEN JERZY 12/10/2018 9:19 AM 2. MG DMSB DIG MAMM-SCREEN JERZY W/CAD 11/20/2016 10:46 AM 3. MG DMSB DIG MAMM-SCREEN JERZY 08/11/2015 8:44 AM 4. MG DMSB DIG MAMM-SCREEN JERZY 07/29/2014 12:58 PM FINDINGS: MAMMOGRAPHY: Breast composition: The breasts are almost entirely fatty. Mass: None. Architectural distortion: None. Calcifications: No significant change in extensive bilateral benign-appearing secretory calcifications. No suspicious calcifications. Asymmetric density: None. Skin thickening: None. Axillary adenopathy: None. IMPRESSION: No mammographic evidence of malignancy. Annual screening is recommended unless otherwise clinically indicated. ASSESSMENT: BI-RADS Category 2: Benign.
== END 2024-11-25 23:59 | disposition home or self-care (01) ==
LOC: RAD 10:15
PROVIDERS: PCP Family Medicine; Visit Provider Family Medicine
DX: Z12.31 Encounter for screening mammogram for malignant neoplasm of breast (principal)
CPT/HCPCS: 77063; 77067